=== PATIENT | female | born 1985 | race Caucasian/White ===

== ENCOUNTER 2016-09-19 21:01 | Emergency (ER) | payer OTHER ==
[2016-09-19 21:13] VITALS: BP 142/72
--- NOTE | 2016-09-19 21:27 | UC ---
Respiratory Complaint HPI - HPI Summary HPI Summary: pt requesting a refill of Claritin D 24 hour, Neurontin, & Albuterol MDI at this time. Chronic sinusitis and received amox 4 weeks ago. Per patient only the meds with Decongestant work. Adamant about Decongestant to nurse and provider. Has Hep C and goes to ID later this week . [ End ] - History of Current Complaint Chief Complaint: UCGeneralIllness Stated Complaint: SINUS Time Seen by Provider: 09/19/16 21:24 Hx Obtained From: Patient Hx Last Menstrual Period: 09/08/16 ?: No Associated Signs And Symptoms: Positive: Nasal Congestion, Sinus Discomfort Related History: Similar Episode/Dx as: - Risk Factors Pulmonary Embolism Risk Factors: Negative Cardiac Risk Factors: Negative Tuberculosis Risk Factors: Drug Addiction - Allergies/Home Medications Allergies/Adverse Reactions: Allergies Allergy/AdvReac Type Severity Reaction Status Date / Time Haloperidol [From Haldol] Allergy Swelling Verified 09/19/16 21:13 Of Face,Lips,& Throat Ketorolac Tromethamine Allergy Hives Verified 09/19/16 21:13 [From Toradol] Lurasidone [From Latuda] Allergy Swelling Verified 09/19/16 21:13 Of Face,Lips,& Throat Naproxen Allergy Swelling Verified 09/19/16 21:13 Of Face,Lips,& Throat Sulfa Antibiotics Allergy Rash Verified 09/19/16 21:13 Ziprasidone [From Geodon] AdvReac "tongue Verified 09/19/16 21:13 hangs out of my mouth" Home Medications: Home Medications Albuterol HFA INHALER* [Ventolin HFA Inhaler*] 2 puff INH Q4H PRN 09/19/16 [ History Confirmed 09/19/16] Fluticasone NASAL SPRAY 50MCG* [Flonase NASAL SPRAY 50MCG*] 2 spray BOTH NARES DAILY 09/19/16 [History Confirmed 09/19/16] Gabapentin CAP(*) [Neurontin 300 CAP(*)] 300 mg PO BID 09/19/16 [History Confirmed 09/19/16] PMH/Surg Hx/FS Hx/Imm Hx Previously Healthy: No Endocrine History Of: Denies: Diabetes, Thyroid Disease, Hyperthyroidism, Hypothyroidism, Dyslipidemia Cardiovascular History Of: Denies: Cardiac Disorders, Hypertension, Pacemaker/ICD, Myocardial Infarction , Congestive Heart Failure, Atrial Fibrillation, Deep Vein Thrombosis, Bleeding Disorders Respiratory History Of: Reports: Asthma - seasonal Denies: COPD, Bronchitis, Pneumonia, Pulmonary Embolism GI/ History Of: Denies: Gastroesophageal Reflux, Ulcer, Gastrointestinal Bleed, Gall Bladder Disease, Kidney Stones, Diverticulitis, Renal Disease, Urosepsis Neurological History Of: Denies: TIA, CVA, Dementia, Seizures, Migraine Psychological History Of: Denies: Anxiety, Depression, Bipolar Disorder, Schizophrenia, Post Traumatic Stress Disorder Cancer History Of: Denies: Lung Cancer, Colorectal Cancer, Breast Cancer, Prostate Cancer, Cervical Cancer Other History Of: Hepatitis C Negative For: HIV, Hepatitis B - Surgical History Surgical History: Yes Surgery Procedure, Year, and Place: , 2009, colonscopy, colposcopy. Ear Tubes x 2 as a child, oral surgeries - Family History Known Family History: Positive: None - Social History Occupation: Unemployed Lives: Alone - with a friend Alcohol Use: None Substance Use Type: None Substance Use Comment - Amount & Last Used: denies Smoking Status (MU): Light Every Day Tobacco Smoker Type: Cigarettes Amount Used/How Often: 5 cigarettes daily Length of Time of Smoking/Using Tobacco: 12 Years Have You Smoked in the Last Year: Yes Household Exposure Type: Cigarettes - Immunization History Most Recent Influenza Vaccination: [id number] Review of Systems Constitutional: Negative Skin: Negative Eyes: Negative ENT: Nasal Discharge Respiratory: Negative Cardiovascular: Negative Gastrointestinal: Negative Genitourinary: Negative Motor: Negative Neurovascular: Negative Musculoskeletal: Negative Neurological: Negative Psychological: Negative All Other Systems Reviewed And Are Negative: Yes Physical Exam Triage Information Reviewed: Yes Appearance: Well-Appearing, No Pain Distress, Well-Nourished Vital Signs: Initial Vital Signs Temp 98.5 F 09/19/16 21:08 Pulse 92 09/19/16 21:08 Resp 17 09/19/16 21:08 BP 142/72 09/19/16 21:08 Pulse Ox 100 09/19/16 21:08 Vital Signs Reviewed: Yes Eye Exam: Normal ENT Exam: Normal Dental: Positive: Other: - poor dentition Neck exam: Normal Neck: Positive: 1 Respiratory Exam: Normal Cardiovascular Exam: Normal Musculoskeletal Exam: Normal Neurological Exam: Normal Psychological Exam: Normal Skin Exam: Normal Skin: Positive: Other - multiple areas of excoriation on the face and neck and arms UC Diagnostic Evaluation - Laboratory O2 Sat by Pulse Oximetry: 100 Respiratory Course/Dx - Course Course Of Treatment: Patient adamant about Claritin D and gabapentin -- concern for abuse and will not refill at this time. SHe states nothing except D works, I offered atarax for itch / anxiety and she willing to accept. DIscussed augmentin for prolonged sinus infection but patient very unhappy that she can not get other med refills and declined meds and I advised her to keep appt with ID later this week to determine if she needs antibiotics as per patient antibiotics cause her to have colitis for weeks. no fever or acute concerns for acute sinus infection it appears she desires med refills. i did refill proair. - Differential Dx/Diagnosis Differential Diagnosis/HQI/PQRI: Asthma Provider Diagnoses: Medication refill / asthma Discharge - Discharge Plan Condition: Fair Disposition: HOME Prescriptions: Albuterol HFA INHALER* [Ventolin HFA Inhaler*] 2 puff INH Q6H PRN #1 mdi PRN Reason: Cough hydrOXYzine HCL TAB* [Atarax 25 MG TAB*] 25 mg PO QID PRN #30 tab PRN Reason: Itching Patient Education Materials: Medicine Refill (ED) Referrals: Non Staff,Doctor [Primary Care Provider] - 3 Days Additional Instructions: As we discussed please keep your appointment with Infectious Disease for follow up and establish care with a primary care physician.
== END 2016-09-19 21:48 | disposition home or self-care (01) ==
LOC: UCCORT 21:01
DX: J45.909 Unspecified asthma, uncomplicated (principal); Z76.0 Encounter for issue of repeat prescription; Z88.6 Allergy status to analgesic agent; Z88.5 Allergy status to narcotic agent; Z88.2 Allergy status to sulfonamides; Z88.8 Allergy status to other drugs, medicaments and biological substances; F17.210 Nicotine dependence, cigarettes, uncomplicated
CPT/HCPCS: 99212; G0463

== ENCOUNTER 2016-11-27 11:34 | Emergency (ER) | payer OTHER ==
[2016-11-27 12:47] VITALS: BP 113/69
--- NOTE | 2016-11-27 13:01 | UC ---
Complaint Female HPI - HPI Summary HPI Summary: 31 yo female with a 2 day hx of dysuria/urgency and frequency no f/c no back pain pain over bladder also requests albuterol refill has had 4 days of cough and sinus symptoms slight wheeze also has worsening of her acne x days - History Of Current Complaint Chief Complaint: UCGU Stated Complaint: URINARY,SINUS Time Seen by Provider: 11/27/16 12:39 Hx Obtained From: Patient Hx Last Menstrual Period: 11/06/16 Onset/Duration: Gradual Onset, Lasting Days Timing: Intermittent Severity Initially: Mild Severity Currently: Mild Pain Intensity: 2 Pain Scale Used: 0-10 Numeric Character: Burning Aggravating Factor(s): Urination Associated Signs And Symptoms: Positive: Back Pain - slight lower. Negative: Fever Related Hx: Similar Episode/Dx as: - UTI - Allergies/Home Medications Allergies/Adverse Reactions: Allergies Allergy/AdvReac Type Severity Reaction Status Date / Time Haloperidol [From Haldol] Allergy Swelling Verified 11/27/16 12:40 Of Face,Lips,& Throat Ketorolac Tromethamine Allergy Hives Verified 11/27/16 12:40 [From Toradol] Lurasidone [From Latuda] Allergy Swelling Verified 11/27/16 12:40 Of Face,Lips,& Throat Naproxen Allergy Swelling Verified 11/27/16 12:40 Of Face,Lips,& Throat Sulfa Antibiotics Allergy Rash Verified 11/27/16 12:40 Ziprasidone [From Geodon] AdvReac "tongue Verified 11/27/16 12:40 hangs out of my mouth" Home Medications: Home Medications hydrOXYzine HCL TAB* [Atarax 25 MG TAB*] 25 mg PO QID PRN 11/27/16 [History Confirmed 11/27/16] PMH/Surg Hx/FS Hx/Imm Hx Previously Healthy: Yes Endocrine History Of: Denies: Diabetes, Thyroid Disease, Hyperthyroidism, Hypothyroidism, Dyslipidemia Cardiovascular History Of: Denies: Cardiac Disorders, Hypertension, Pacemaker/ICD, Myocardial Infarction , Congestive Heart Failure, Atrial Fibrillation, Deep Vein Thrombosis, Bleeding Disorders Respiratory History Of: Reports: Asthma - seasonal Denies: COPD, Bronchitis, Pneumonia, Pulmonary Embolism GI/ History Of: Denies: Gastroesophageal Reflux, Ulcer, Gastrointestinal Bleed, Gall Bladder Disease, Kidney Stones, Diverticulitis, Renal Disease, Urosepsis Neurological History Of: Denies: TIA, CVA, Dementia, Seizures, Migraine Psychological History Of: Denies: Anxiety, Depression, Bipolar Disorder, Schizophrenia, Post Traumatic Stress Disorder Cancer History Of: Denies: Lung Cancer, Colorectal Cancer, Breast Cancer, Prostate Cancer, Cervical Cancer Other History Of: Hepatitis C Negative For: HIV, Hepatitis B - Surgical History Surgical History: Yes Surgery Procedure, Year, and Place: , 2009, colonscopy, colposcopy. Ear Tubes x 2 as a child, oral surgeries - Family History Known Family History: Positive: Hypertension - Social History Alcohol Use: None Substance Use Type: None Substance Use Comment - Amount & Last Used: denies Smoking Status (MU): Heavy Every Day Tobacco Smoker Type: Cigarettes Amount Used/How Often: 10-20 cigarettes daily Length of Time of Smoking/Using Tobacco: 12 Years Have You Smoked in the Last Year: Yes Household Exposure Type: Cigarettes - Immunization History Most Recent Influenza Vaccination: [id number] Review of Systems Constitutional: Negative Skin: Negative Eyes: Negative ENT: Sore Throat, Nasal Discharge Respiratory: Cough Cardiovascular: Negative Gastrointestinal: Negative Genitourinary: Dysuria, Frequency, Urgency Motor: Negative Neurovascular: Negative Musculoskeletal: Negative Neurological: Negative Psychological: Negative All Other Systems Reviewed And Are Negative: Yes Physical Exam Triage Information Reviewed: Yes Appearance: Well-Appearing, No Pain Distress, Well-Nourished Vital Signs: Initial Vital Signs Temp 99 F 11/27/16 12:42 Pulse 91 11/27/16 12:42 Resp 14 11/27/16 12:42 BP 113/69 11/27/16 12:42 Pulse Ox 99 11/27/16 12:42 Vital Signs Reviewed: Yes Eyes: Positive: Conjunctiva Clear ENT: Positive: Hearing grossly normal, Nasal congestion, Nasal drainage, TMs normal. Negative: Tonsillar exudate, Trismus, Muffled/hoarse voice Dental Exam: Normal Neck: Positive: Supple, Nontender, No Lymphadenopathy Respiratory: Positive: Lungs clear, Normal breath sounds, No respiratory distress, No accessory muscle use Cardiovascular: Positive: RRR Abdominal Exam: Normal Bowel Sounds: Positive: Present Musculoskeletal: Positive: ROM Intact, No Edema Neurological: Positive: Alert Psychological Exam: Normal Skin Exam: Normal Complaint Female Dx - Differential Dx/Diagnosis Provider Diagnoses: DYSURIA. viral URI. bronchospasm by history Discharge - Discharge Plan Condition: Stable Disposition: HOME Prescriptions: Albuterol HFA INHALER* [Ventolin HFA Inhaler*] 2 puff INH QID PRN #1 mdi PRN Reason: Wheezing Cephalexin CAP* [Keflex CAP*] 500 mg PO TID #21 cap Fluconazole 150 MG (NF) [Diflucan 150 mg (NF)] 150 mg PO ONCE #1 tab Patient Education Materials: Dysuria (ED) Referrals: Non Staff,Doctor [Primary Care Provider] - 3 Days Additional Instructions: recheck for new or worsening symptoms
== END 2016-11-27 13:05 | disposition home or self-care (01) ==
LOC: UCCORT 11:34
DX: R30.0 Dysuria (principal); J06.9 Acute upper respiratory infection, unspecified; J45.998 Other asthma; F17.210 Nicotine dependence, cigarettes, uncomplicated; Z88.6 Allergy status to analgesic agent; Z88.2 Allergy status to sulfonamides; Z88.8 Allergy status to other drugs, medicaments and biological substances
CPT/HCPCS: 81003; 87086; 99212; G0463

== ENCOUNTER 2017-01-21 16:16 | Emergency (ER) | payer OTHER ==
[2017-01-21 16:45] VITALS: BP 118/59
== END 2017-01-21 17:40 | disposition left against medical advice (07) ==
LOC: UCCORT 16:16
DX: R39.198 Other difficulties with micturition (principal); K08.9 Disorder of teeth and supporting structures, unspecified; Z53.21 Procedure and treatment not carried out due to patient leaving prior to being seen by health care provider

== ENCOUNTER 2017-07-29 09:19 | Emergency (ER) | payer OTHER ==
[2017-07-29 10:07] VITALS: BP 115/79
--- NOTE | 2017-07-29 10:28 | UC ---
Respiratory Complaint HPI - HPI Summary HPI Summary: 32 YO FEMALE WITH SINUS PRESSURE AND PAIN X 1 WEEK NO F/C SOME WHEEZING ALSO WITH "ANCE OUTBREAK" AND WOUND OVER LEFT 5TH MCP [employer]KS INFECTED SHE STATE SHE FELL AND HIT A WALL - History of Current Complaint Chief Complaint: UCRespiratory Stated Complaint: SINUS COMPLAINT Time Seen by Provider: 07/29/17 10:15 Hx Obtained From: Patient Hx Last Menstrual Period: 07/22/17 Onset/Duration: Gradual Onset, Lasting Days Timing: Constant Severity Initially: Moderate Severity Currently: Moderate Pain Intensity: 4 Pain Scale Used: 0-10 Numeric Character: Cough: Nonproductive Aggravating Factors: Nothing Associated Signs And Symptoms: Positive: Wheezing - Allergies/Home Medications Allergies/Adverse Reactions: Allergies Allergy/AdvReac Type Severity Reaction Status Date / Time Haloperidol [From Haldol] Allergy Swelling Verified 01/21/17 16:44 Of Face,Lips,& Throat Ketamine Allergy See Comment Verified 07/29/17 10:10 Ketorolac Tromethamine Allergy Hives Verified 01/21/17 16:44 [From Toradol] Lurasidone [From Latuda] Allergy Swelling Verified 01/21/17 16:44 Of Face,Lips,& Throat Naproxen Allergy Swelling Verified 01/21/17 16:44 Of Face,Lips,& Throat Sulfa Antibiotics Allergy Rash Verified 01/21/17 16:44 Ziprasidone [From Geodon] AdvReac "tongue Verified 01/21/17 16:44 hangs out of my mouth" antipsychotics r atypical Allergy See Comment Uncoded 07/29/17 10:10 Home Medications: Home Medications Docusate Sodium [Colace] 100 mg PO DAILY PRN 07/29/17 [History Confirmed ] PMH/Surg Hx/FS Hx/Imm Hx Previously Healthy: Yes Respiratory History: Asthma Other History Of: Hepatitis C Negative For: HIV, Hepatitis B - Surgical History Surgical History: Yes Surgery Procedure, Year, and Place: , 2009, colonscopy, colposcopy. Ear Tubes x 2 as a child, oral surgeries. Pt decliens to list other surgeries; denies other surgeries - Family History Known Family History: Positive: Hypertension - Social History Alcohol Use: None Substance Use Type: None Substance Use Comment - Amount & Last Used: denies Smoking Status (MU): Heavy Every Day Tobacco Smoker Type: Cigarettes Amount Used/How Often: 10 cigarettes daily Length of Time of Smoking/Using Tobacco: 12 Years Have You Smoked in the Last Year: Yes Household Exposure Type: Cigarettes Cessation Counseling: Patient Advised to Stop - Immunization History Most Recent Influenza Vaccination: [id number] Review of Systems Constitutional: Negative Skin: Negative Eyes: Negative ENT: Nasal Discharge, Sinus Congestion, Sinus Pain/Tenderness Respiratory: Cough Cardiovascular: Negative Gastrointestinal: Negative Genitourinary: Negative Motor: Negative Neurovascular: Negative Musculoskeletal: Negative Neurological: Negative Psychological: Negative Is Patient Immunocompromised?: No All Other Systems Reviewed And Are Negative: Yes Physical Exam Triage Information Reviewed: Yes Appearance: Well-Appearing, No Pain Distress, Well-Nourished Vital Signs: Initial Vital Signs Temp 98.4 F 07/29/17 10:02 Pulse 72 07/29/17 10:02 Resp 20 07/29/17 10:02 BP 115/79 07/29/17 10:02 Vital Signs Reviewed: Yes Eyes: Positive: Conjunctiva Clear ENT: Positive: Hearing grossly normal, Nasal congestion, Nasal drainage, Sinus tenderness, Uvula midline Dental: Positive: Gross Decay/Caries @ - ABYSMAL OVERALL DENTITION Neck: Positive: Supple, Nontender, No Lymphadenopathy Respiratory: Positive: No respiratory distress, No accessory muscle use, Wheezing - SCATTERRED Cardiovascular: Positive: RRR, No Murmur Musculoskeletal: Positive: ROM Intact, No Edema Neurological: Positive: Alert Psychological Exam: Normal Skin: Positive: Other - PUSTULES/PAPULES ON FACE, NO ABSCESSES UC Diagnostic Evaluation - Laboratory O2 Sat by Pulse Oximetry: 100 - normal/not hypoxic Respiratory Course/Dx - Differential Dx/Diagnosis Provider Diagnoses: ACUTE BRONCHITIS WITH BRONCHOSPASM. ACUTE SINUSITIS. CELLULITIS LEFT HAND Discharge - Discharge Plan Condition: Stable Disposition: HOME Prescriptions: Albuterol HFA INHALER* [Ventolin HFA Inhaler*] 2 puff INH QID #1 mdi DOXYcycline CAP(*) [DOXYcycline 100MG CAP(*)] 100 mg PO BID #20 cap Prednisone [Deltasone] 40 mg PO DAILY #10 tab Patient Education Materials: Cellulitis (ED), Sinusitis (ED), Bronchospasm (ED) Referrals: Non Staff,Doctor [Primary Care Provider] - Additional Instructions: recheck for new or worsening symptoms recheck in 4 days if not better to ER for new or worsening symptoms YOU NEED TO STOP SMOKING Images Hands: 1 - REDNESS SURROUNDING HEALING LAC. NO DORSAL HAND EDEMA
== END 2017-07-29 10:43 | disposition home or self-care (01) ==
LOC: UCCORT 09:19
DX: J20.9 Acute bronchitis, unspecified (principal); J01.90 Acute sinusitis, unspecified; L03.114 Cellulitis of left upper limb; J45.909 Unspecified asthma, uncomplicated; Z86.19 Personal history of other infectious and parasitic diseases; Z88.6 Allergy status to analgesic agent; Z88.5 Allergy status to narcotic agent; Z88.2 Allergy status to sulfonamides; Z88.8 Allergy status to other drugs, medicaments and biological substances; F17.210 Nicotine dependence, cigarettes, uncomplicated
CPT/HCPCS: 99212; G0463